=== PATIENT | male | born 1975 | race African-American/Black ===

== ENCOUNTER 2020-05-15 16:57 | Inpatient (IN) ==
[2020-05-15 17:39] LABS: Basophils % 0.3 % (0.0-0.8); Eosinophils # 1.1 10*3/uL (0.0-0.87); Eosinophils % 8.9 % (0.00-10.9); Hemoglobin 7.3 GM/DL (14.0-18.0); Immature Granulocytes % 0.5 %; Immature Granulocytes Absolute 0.06 #; Lymphocytes # 0.7 10*3/uL (1.4-4.0); Lymphocytes % 5.7 % (21.2-54.2); Mean Corpuscular HGB Conc 30.4 GM/DL (32-36); Mean Corpuscular Volume 89.2 FL (87-102); Mean Platelet Volume 9.8 FL (9.6-12.0); Monocytes % 7.9 % (1.7-12.7); Neutrophils % 76.7 % (38.7-73.9); Platelet Count 237 T/CUMM (130-400); Red Blood Count 2.69 MC/CUMM (3.8-5.5); White Blood Count 11.8 T/CUMM (4-12)
[2020-05-15 18:04] LABS: Albumin 2.7 G/DL (3.4-5.0); Bilirubin,Total 0.4 MG/DL (0.2-1.0); Calcium 9.4 MG/DL (8.5-10.1); Total Protein 8.2 G/DL (6.4-8.3)
[2020-05-15] MEDS ORDERED: VANCOMYCIN INJ 1,000 MG in SODIUM CHLORIDE 0.9% 250 ML IV STA (19:05)
[2020-05-15] MEDS ORDERED: ACETAMINOPHEN 325 MG TABLET PO PRN (20:51)
[2020-05-15] MEDS ORDERED: ALBUTEROL/IPRATROPIUM 3 ML NEB RESP TX PRN (20:51)
[2020-05-15] MEDS ORDERED: DEXTROSE 50% 25 GM/50 ML VIAL IV PRN (20:51)
[2020-05-15] MEDS ORDERED: GLUCAGON 1 MG VIAL IM PRN (20:51)
[2020-05-15] MEDS ORDERED: DOCUSATE SODIUM 100 MG CAPSULE PO PRN (21:00)
[2020-05-15] MEDS ORDERED: VANCOMYCIN INJ 1,000 MG in SODIUM CHLORIDE 0.9% 250 ML IV PRN (21:19)
[2020-05-15] MEDS ORDERED: ONDANSETRON 4 MG/2 ML VIAL IV PRN (22:00)
[2020-05-15] MEDS: HEPARIN 5,000 UNIT/1 ML VIAL SUBCUT SCH (22:05)
[2020-05-15] MEDS: PIPERACILLIN/TAZOBACTAM 3,375 MG in SODIUM CHLORIDE 0.9% 100 ML IV SCH (22:05)
[2020-05-15] MEDS: BUDESONIDE/FORMOTEROL 160-4.5 INHALER 6 GM INH SCH (22:15)
[2020-05-15] MEDS ORDERED: VANCOMYCIN INJ 1,500 MG in SODIUM CHLORIDE 0.9% 500 ML IV ONE (23:00)
[2020-05-16 05:23] LABS: Bacteria,Urine Moderate /HPF (Few); Bilirubin,Urine Negative (Negative); Blood, Urine Negative (Negative); Glucose,Urine (UA) 50 mg/dL (Negative); Ketones,Urine Negative (Negative); Mucus,Urine Occasional /LPF (Occasional); Nitrite,Urine Negative (Negative); Protein,Urine >=500 MG/DL; RBC,Urine 2 /HPF (0-4); Squamous Epithelial Cell,Urine Occasional /HPF (0-10); Urine Appearance CLOUDY (Clear); Urine Color Yellow (Yellow); Urine Specific Gravity 1.014 (1.001-1.035); Urine Urobilinogen < 2.0 EU/DL (0.2-1.0); WBC,Urine 12 /HPF (0-6)
[2020-05-16 05:56] LABS: Basophils % 0.3 % (0.0-0.8); Eosinophils # 1.2 10*3/uL (0.0-0.87); Eosinophils % 10.8 % (0.00-10.9); Hematocrit 23.4 VOL% (42.0-52.0); Hemoglobin 6.9 GM/DL (14.0-18.0); Immature Granulocytes % 0.6 %; Immature Granulocytes Absolute 0.06 #; Lymphocytes # 0.7 10*3/uL (1.4-4.0); Lymphocytes % 6.6 % (21.2-54.2); Mean Corpuscular HGB Conc 29.5 GM/DL (32-36); Mean Corpuscular Volume 92.5 FL (87-102); Mean Platelet Volume 9.6 FL (9.6-12.0); Monocytes % 6.8 % (1.7-12.7); Neutrophils % 74.9 % (38.7-73.9); Platelet Count 240 T/CUMM (130-400); Red Blood Count 2.53 MC/CUMM (3.8-5.5); Red Cell Distribution Width 17.9 % (9.3-17.3); White Blood Count 10.8 T/CUMM (4-12)
[2020-05-16] MEDS: HEPARIN 5,000 UNIT/1 ML VIAL SUBCUT SCH ×3 (06:06→22:36)
[2020-05-16 06:23] LABS: % Iron Saturation 14.5 % (18-50); Ferritin 1027.1 ng/ml (26-388)
[2020-05-16 06:24] LABS: Eosinophils 11 % (0-10); Lymphocytes 8 % (20-55); Segmented Neutrophils 76 % (50-85); Total Cells Counted 100
[2020-05-16 06:25] LABS: Hypochromasia 1+; Microcytosis 1+; Ovalocytes Slight; Platelet Estimate Adequate
[2020-05-16 06:28] LABS: Calcium 9.1 MG/DL (8.5-10.1); Osmolality,Calculated 286.8 MOS/KG (273-304); Thyroid Stimulating Hormone 1.71 uIU/ml (0.358-3.74)
[2020-05-16 06:29] LABS: Folate 6.5 NG/ML (5.4-24.0); Vitamin B12 483 PG/ML (211-911)
[2020-05-16 06:49] LABS: Parathyroid Hormone Intact 249.1 PG/ML (18.4-80.1)
[2020-05-16 07:34] LABS: Sedimentation Rate-Westergren 125 MM/HR (0-15)
[2020-05-16] MEDS: PIPERACILLIN/TAZOBACTAM 3,375 MG in SODIUM CHLORIDE 0.9% 100 ML IV SCH ×3 (08:27→22:36)
[2020-05-16] MEDS: BUDESONIDE/FORMOTEROL 160-4.5 INHALER 6 GM INH SCH ×2 (08:27→22:36)
[2020-05-16] MEDS ORDERED: POLYETHYLENE GLYCOL POWDER 17 GM PACK PO PRN (10:29)
[2020-05-16] MEDS ORDERED: IRON SUCROSE 300 MG in SODIUM CHLORIDE 0.9% 100 ML IV ONE (15:00)
[2020-05-16] MEDS ORDERED: FLUCONAZOLE 200 MG TABLET PO ONE (15:00)
[2020-05-16] MEDS ORDERED: LEVOFLOXACIN INJ 750 MG in PREMIX 1 EACH IV ONE (17:00)
[2020-05-17 03:40] LABS: Basophils % 0.4 % (0.0-0.8); Eosinophils # 1.1 10*3/uL (0.0-0.87); Eosinophils % 14.1 % (0.00-10.9); Hemoglobin 6.6 GM/DL (14.0-18.0); Immature Granulocytes % 0.4 %; Immature Granulocytes Absolute 0.03 #; Lymphocytes # 0.9 10*3/uL (1.4-4.0); Lymphocytes % 10.7 % (21.2-54.2); Mean Corpuscular Volume 90.2 FL (87-102); Mean Platelet Volume 10.3 FL (9.6-12.0); Monocytes % 5.8 % (1.7-12.7); Neutrophils % 68.6 % (38.7-73.9); Platelet Count 252 T/CUMM (130-400); Red Blood Count 2.44 MC/CUMM (3.8-5.5); Red Cell Distribution Width 17.8 % (9.3-17.3)
[2020-05-17 04:14] LABS: Calcium 9.3 MG/DL (8.5-10.1); Osmolality,Calculated 284.1 MOS/KG (273-304)
[2020-05-17 04:36] LABS: Eosinophils 14 % (0-10); Hypochromasia 2+; Lymphocytes 12 % (20-55); Ovalocytes Slight; Platelet Estimate Adequate; Segmented Neutrophils 69 % (50-85); Total Cells Counted 100
[2020-05-17 04:37] LABS: Microcytosis Slight
[2020-05-17] MEDS: HEPARIN 5,000 UNIT/1 ML VIAL SUBCUT SCH ×3 (05:08→21:19)
[2020-05-17] MEDS ORDERED: SODIUM CHLORIDE 0.9% 1,000 ML IV PRN (08:01)
[2020-05-17] MEDS: BUDESONIDE/FORMOTEROL 160-4.5 INHALER 6 GM INH SCH ×2 (08:01→21:15)
[2020-05-17] MEDS: PIPERACILLIN/TAZOBACTAM 3,375 MG in SODIUM CHLORIDE 0.9% 100 ML IV SCH ×2 (12:48→21:14)
[2020-05-17 17:00] LABS: Hematocrit 26.4 VOL% (42.0-52.0)
[2020-05-17] MEDS ORDERED: SODIUM CHLORIDE 0.9% IV PRN (17:00)
[2020-05-17] MEDS ORDERED: VANCOMYCIN INJ 1,000 MG in SODIUM CHLORIDE 0.9% 250 ML IV ONE (17:00)
[2020-05-17] MEDS ORDERED: PIPERACILLIN IV PRN (17:00)
[2020-05-17] MEDS ORDERED: amLODIPine 5 MG TABLET PO SCH (17:00)
[2020-05-17] MEDS ORDERED: TAZOBACTAM IV PRN (17:00)
[2020-05-17 17:03] LABS: Hemoglobin 8.2 GM/DL (14.0-18.0)
[2020-05-17] MEDS ORDERED: MELATONIN 3 MG TABLET PO PRN (18:36)
[2020-05-17] MEDS ORDERED: amLODIPine 10 MG TABLET PO SCH (20:31)
[2020-05-17] MEDS ORDERED: amLODIPine 10 MG TABLET PO ONE (21:00)
[2020-05-17] MEDS ORDERED: SENNA 8.6 MG TABLET PO SCH (21:00)
[2020-05-17] MEDS: POLYETHYLENE GLYCOL POWDER 17 GM PACK PO SCH (21:19)
[2020-05-17] MEDS: DOCUSATE SODIUM 100 MG CAPSULE PO SCH (21:20)
[2020-05-18] MEDS: HEPARIN 5,000 UNIT/1 ML VIAL SUBCUT SCH ×2 (05:10→13:13)
[2020-05-18 06:00] LABS: Basophils % 0.4 % (0.0-0.8); Eosinophils % 14.7 % (0.00-10.9); Hematocrit 26.7 VOL% (42.0-52.0); Immature Granulocytes % 0.3 %; Immature Granulocytes Absolute 0.02 #; Lymphocytes # 0.9 10*3/uL (1.4-4.0); Lymphocytes % 13.2 % (21.2-54.2); Mean Platelet Volume 9.7 FL (9.6-12.0); Monocytes % 8.5 % (1.7-12.7); Neutrophils % 62.9 % (38.7-73.9); Platelet Count 274 T/CUMM (130-400); Red Cell Distribution Width 16.7 % (9.3-17.3)
[2020-05-18 06:20] LABS: Calcium 9.3 MG/DL (8.5-10.1)
[2020-05-18 06:26] LABS: Eosinophils 11 % (0-10); Hypochromasia 1+; Lymphocytes 9 % (20-55); Segmented Neutrophils 71 % (50-85); Total Cells Counted 100
[2020-05-18 06:27] LABS: Microcytosis 1+; Platelet Estimate Normal; Spherocytes Slight
[2020-05-18] MEDS: DOCUSATE SODIUM 100 MG CAPSULE PO SCH (08:53)
[2020-05-18] MEDS: POLYETHYLENE GLYCOL POWDER 17 GM PACK PO SCH (08:54)
[2020-05-18] MEDS: PIPERACILLIN/TAZOBACTAM 3,375 MG in SODIUM CHLORIDE 0.9% 100 ML IV SCH (08:57)
[2020-05-18] MEDS: BUDESONIDE/FORMOTEROL 160-4.5 INHALER 6 GM INH SCH (08:57)
[2020-05-18] MEDS ORDERED: carvediloL 6.25 MG TABLET PO SCH (09:00)
[2020-05-18] MEDS ORDERED: PIPERACILLIN IV PRN (09:13)
[2020-05-18] MEDS ORDERED: TAZOBACTAM IV PRN (09:13)
[2020-05-18] MEDS ORDERED: SODIUM CHLORIDE 0.9% IV PRN (09:13)
[2020-05-18] MEDS ORDERED: IRON SUCROSE 300 MG in SODIUM CHLORIDE 0.9% 100 ML IV ONE (11:00)
[2020-05-18] MEDS ORDERED: LINACLOTIDE 145 MCG CAPSULE PO SCH (11:00)
[2020-05-18 12:14] LABS: Hemoglobin A1 (Alkaline) 97.8 % (96.5-98.5); Hemoglobin A2 (Alkaline) 2.2 % (1.5-3.5)
[2020-05-18 12:18] VITALS: BP 169/89
[2020-05-18] MEDS ORDERED: LEVOFLOXACIN INJ 500 MG in PREMIX 1 EACH IV SCH (17:00)
[2020-05-18] MEDS ORDERED: carvediloL 12.5 MG TABLET PO SCH (17:00)
[2020-05-18] MEDS ORDERED: AMOXICILLIN/CLAV 500 MG TABLET PO SCH (21:00)
[2020-05-18] MEDS ORDERED: DOXYCYCLINE HYCLATE 100 MG CAPSULE PO SCH (21:00)
[2020-05-19] MEDS ORDERED: IRON (CARBONYL)/VIT C/B12/FA TABLET PO SCH (09:00)
== END 2020-05-18 14:00 | DRG 193 ==
LOC: EDBD → EDUNIT# → N.ED 16:57 → N.EDINP 20:02 → INTOOBSV 20:02 → N.5E 20:37
PROVIDERS: ADMIT Hospitalist; ATTEND Hospitalist